=== PATIENT | male | born 1965 | race Caucasian/White ===

== ENCOUNTER 2022-07-16 07:24 | Emergency (ER) | payer OTHER, SELFPAY ==
[2022-07-16] VITALS (10 sets, daily range): BP systolic 167–198; BP diastolic 84–109; PULSE 72–92; RESP 14–20; TEMP 36.2; O2SAT 95–99; BMI 40.8
--- NOTE | 2022-07-16 07:36 | ED.GENADULT ---
HPI - General Adult General Chief complaint: Neuro Symptoms/Deficit Stated complaint: dropping on lT side of face Time Seen by Provider: 07/16/22 07:36 Source: patient Mode of arrival: Ambulatory Limitations: no limitations History of Present Illness HPI narrative: Patient is a 48-year-old male who arrives to emergency department for evaluation of left-sided facial droop. He states last evening he started having pain on the left side of his head. He is also been having fullness pain in his left ear for approximately 1 week or more. Has been on antibiotics without any improvement. States he woke up this morning and noticed that the left side of his face was drooping. He does have a left-sided headache. He is no extremity numbness or tingling. He does have problems closing his left eye. He did bite the left side of his lip as well. Has not tried anything for the symptoms prior to arrival. Does have a history of high blood pressure but does not take any current medications for this. It is take medicines for his thyroid Related Data Previous Rx's Medication Instructions Recorded hydrocodone 5 mg-acetaminophen 325 1 tab PO Q4-6H PRN pain #10 tabs 07/16/22 mg tablet prednisone 20 mg tablet 60 mg PO DAILY 6 days #18 tabs 07/16/22 Allergies Allergy/AdvReac Type Severity Reaction Status Date / Time Penicillins Allergy Hives Verified 07/16/22 07:37 Review of Systems Constitutional Constitutional: Reports system reviewed and no additional complaints, except as documented Eyes Eyes: Reports system reviewed and no additional complaints, except as documented Cardiovascular Cardiovascular: Reports system reviewed and no additional complaints, except as documented Respiratory Respiratory: Reports system reviewed and no additional complaints, except as documented Integumentary/Breasts Skin/Breast: Reports system reviewed and no additional complaints, except as documented Neurologic Neurologic: Reports system reviewed and no additional complaints, except as documented Hematologic/Lymphatic On Anticoagulants: No Patient History Medical History Hypertension Hypothyroid Social History Smoking Status: Never smoker Exam Initial Vital Signs Initial Vital Signs: Vital Signs Pulse Rate 92 H 07/16/22 07:32 Pulse Oximetry 97 07/16/22 07:32 Const General: cooperative, comfortable and No ill appearing HENMT Head: normal to inspection and normocephalic Ears: TM normal on the right, EAC's normal and TM abnormal bulging on the left and wth effusion (Left) Mouth: oral mucosae normal and moist mucous membranes Eyes Eyelids: eyelids normal Pupils: PERRL EOM: EOM intact bilaterally Resp Effort & Inspection: normal respiratory effort Auscultation: clear to auscultation bilaterally Cardio Rate: regular rate Rhythm: regular rhythm GI Inspection: normal to inspection Palpation: soft and No tender Skin General: no rashes or lesions noted Neuro General: patient alert, patient awake, patient oriented x3, gait normal and moves all extremities Cognition: normal cognition Speech: speech normal Gait: normal gait Motor: muscle tone normal throughout Other: Cranial nerves intact except for drooping of the left side of the face this does not involve the entire left side of the face Extrem General: normal to inspection and capillary refill normal Scores GCS [place] coma scale eye opening: Spontaneous [place] coma scale verbal response: Orientated [place] coma scale motor response: Obey commands [place] coma scale total score: 15 NIH Stroke Scale Level of Conciousness: Alert, keenly responsive Ask month/age: Answers both questions correctly. Open/close eyes, close hand: Performs both tasks correctly Best gaze horizontal: Normal Visual kelly: No visual loss Facial palsy: Partial paralysis, total or near total paralysis of lower face Left arm drift: No drift for full 10 sec Right arm drift: No drift for full 10 sec Left leg drift: No drift for full 5 sec Right leg drift: No drift for full 5 sec Limb ataxia: Absent Sensory on face/arms/legs: Mild to moderate sensory loss, can tell touch Best language: No aphasia, normal Dysarthria: Normal Extinction or inattention: No abnormality Total NIH Stroke scale score: 3 Course Orders Ordered: Discontinued Medications Hydrocodone Bitart/Acetaminophen (Hydrocodone/Acet 5/325 Tablet) 1 tab PO NOW ONE Stop: 07/16/22 10:50 Last Admin: 07/16/22 11:07 Dose: 1 tab Documented By: SUSAN Diazepam (Diazepam 5 Mg Tablet) 5 mg PO NOW ONE Stop: 07/16/22 09:46 Last Admin: 07/16/22 10:16 Dose: 5 mg Documented By: SUSAN Prednisone (Prednisone 20 Mg Tablet) 60 mg PO NOW ONE Stop: 07/16/22 10:50 Last Admin: 07/16/22 11:07 Dose: 60 mg Documented By: SUSAN Vital Signs Vital signs: Vital Signs - 8 hr 07/16/22 07:33 07/16/22 07:32 07/16/22 07:51 Temperature 97.2 F L Pulse Rate 91 H 92 H Respiratory Rate 18 Blood Pressure 198/109 H 173/98 H Pulse Oximetry 98 97 Oxygen Delivery Method Room Air 07/16/22 07:51 07/16/22 08:00 07/16/22 08:00 Temperature Pulse Rate 85 79 Respiratory Rate Blood Pressure 167/95 H Pulse Oximetry 97 96 Oxygen Delivery Method Medical Decision Making Lab Data 07/16/22 07:40 07/16/22 07:40 Labs: Lab Results 07/16/22 07/16/22 07/16/22 Range/Units 07:40 07:40 07:40 WBC 6.9 (4.5-11.0) X10^3/uL RBC 4.94 (4.5-5.9) X10^6/uL Hgb 14.8 (13.5-17.5) g/dL Hct 41.7 (41-53) % MCV 84.5 (80-100) fL MCH 30.0 (26-34) PG MCHC 35.5 (30-36) % RDW 12.8 (11.6-14.8) % Plt Count 208 (150-400) X10^3/uL Neut % (Auto) 65.8 (50-75) % Lymph % (Auto) 20.9 L (25-40) % [place] % (Auto) 10.9 (3-14) % Eos % (Auto) 1.8 L (2-4) % Baso % (Auto) 0.6 (0-2) % Neut # (Auto) 4600 (9425-2280) /uL Lymph # (Auto) 1400 (1890-0590) /uL [place] # (Auto) 800 (0-900) /uL Eos # (Auto) 100 (0-450) /uL Baso # (Auto) 0 (0-100) /uL Sodium 135 L (137-145) mmol/L Potassium 3.9 (3.4-5.1) mmol/L Chloride 99 (98-107) mmol/L Carbon Dioxide 29 (22-32) mmol/L BUN 17 (9-20) mg/dL Creatinine 0.83 (0.66-1.25) mg/dL Estimated GFR > 60 (>60) mL/min BUN/Creatinine Ratio 20.5 (6-22) Glucose 111 H (70-100) mg/dL Calcium 8.9 (8.4-10.2) mg/dL Total Bilirubin 0.7 (0.2-1.3) mg/dL AST 25 (17-59) IU/L ALT 34 (<50) IU/L Alkaline Phosphatase 69 (38-126) U/L Total Creatine Kinase 73 (55-170) U/L CK-MB (CK-2) TNP CK-MB (CK-2) Rel Index TNP Troponin I < 0.012 (0.01-0.034) ng/mL Total Protein 7.8 (6.3-8.2) g/dL Albumin 4.2 (3.5-5.0) g/dL Globulin 3.6 (1.7-4.1) g/dL Albumin/Globulin Ratio 1.2 (1.0-2.8) Lipase 77 (23-300) U/L TSH (0.47-4.68) uIU/mL 07/16/22 Range/Units 07:40 WBC (4.5-11.0) X10^3/uL RBC (4.5-5.9) X10^6/uL Hgb (13.5-17.5) g/dL Hct (41-53) % MCV (80-100) fL MCH (26-34) PG MCHC (30-36) % RDW (11.6-14.8) % Plt Count (150-400) X10^3/uL Neut % (Auto) (50-75) % Lymph % (Auto) (25-40) % [place] % (Auto) (3-14) % Eos % (Auto) (2-4) % Baso % (Auto) (0-2) % Neut # (Auto) (8900-1420) /uL Lymph # (Auto) (3744-4004) /uL [place] # (Auto) (0-900) /uL Eos # (Auto) (0-450) /uL Baso # (Auto) (0-100) /uL Sodium (137-145) mmol/L Potassium (3.4-5.1) mmol/L Chloride (98-107) mmol/L Carbon Dioxide (22-32) mmol/L BUN (9-20) mg/dL Creatinine (0.66-1.25) mg/dL Estimated GFR (>60) mL/min BUN/Creatinine Ratio (6-22) Glucose (70-100) mg/dL Calcium (8.4-10.2) mg/dL Total Bilirubin (0.2-1.3) mg/dL AST (17-59) IU/L ALT (<50) IU/L Alkaline Phosphatase (38-126) U/L Total Creatine Kinase (55-170) U/L CK-MB (CK-2) CK-MB (CK-2) Rel Index Troponin I (0.01-0.034) ng/mL Total Protein (6.3-8.2) g/dL Albumin (3.5-5.0) g/dL Globulin (1.7-4.1) g/dL Albumin/Globulin Ratio (1.0-2.8) Lipase (23-300) U/L TSH 2.34 (0.47-4.68) uIU/mL Urine Dip Bedside Urine Glucose Negative Bedside Urine Bilirubin - Negative Bedside Urine Ketone - Negative Urine Specific [place] 1.010 Bedside Urine Occult Blood - Negative Bedside Urine pH 6.5 Bedside Urine Protein - Negative Bedside Urine Urobilinogen - Negative Bedside Urine Nitrite - Negative Bedside Urine Leukocytes - Negative Esterase Point of care testing: Urine Dip Bedside Urine Glucose Negative Bedside Urine Bilirubin - Negative Bedside Urine Ketone - Negative Urine Specific [place] 1.010 Bedside Urine Occult Blood - Negative Bedside Urine pH 6.5 Bedside Urine Protein - Negative Bedside Urine Urobilinogen - Negative Bedside Urine Nitrite - Negative Bedside Urine Leukocytes - Negative Esterase Imaging Data CT scan - head: Radiologist's Impression: [address] [address] [address] Scan Report Signed Patient: Aleksandar Amin MR#: [id number] : 1965 Acct:[id number] Age/Sex: 56 / M Date of Service: 07/16/22 Loc: ED Accession Number: [id number] ?? Procedure: CT head/brain wo con Ordering Provider: Alan Golden D.O. PROCEDURE:? CT HEAD/BRAIN WO CON ? INDICATIONS:? Left-sided facial droop ? TECHNIQUE:? Noncontrast 4.5 mm thick angled axial sections acquired from the foramen magnum to the vertex, with coronal and sagittal reformats.? For radiation dose reduction, the following was used:? automated exposure control, adjustment of mA and/or kV according to patient size.? ? COMPARISON:? None. ? FINDINGS:? Image quality:? Excellent.? ? CSF spaces:? Basal cisterns are patent.? No extra-axial fluid collections.? Ventricles are normal in size and shape.? ? Brain:? No midline shift.? No intracranial masses or hemorrhage.? Sotelo-white matter interface is normal.? ? Skull and face:? Calvarium and visualized facial bones are intact, without suspicious lesions.? ? Sinuses:? Visualized sinuses demonstrate left maxillary mucosal thickening..? ? IMPRESSION:? ? 1. No acute intracranial process. ? ? Dictated by: Jesica Sood M.D. on 07/16/2022 at 7:55 ? ? Approved by: Jesica Sood M.D. on 07/16/2022 at 7:56? ECG Data Attestation: I personally reviewed and interpreted this ECG as follows: Interpretation: Sinus rhythm Ventricular rate is 77 Left axis deviation Normal QRS Normal QTC No ST T wave changes MDM Narrative Medical decision making narrative: Patient's clinical presentation today is consistent with Majano's palsy however did consider TIA/CVA. He is outside the window of any tPA or intervention. Head CT was unremarkable. Given his ear discomfort and the left-sided headache we discussed obtaining an MRI here in the emergency department. We attempted to obtain the MRI and even with Valium the patient was unable to finish the study secondary to claustrophobia. Plan will be is to start him on prednisone. We did discuss the importance of him following up with Ear Nose and Throat. He was given return precautions. He expressed understanding and agreement Discharge Plan Departure Patient Disposition: Home Clinical Impression: Majano's palsy Instructions: DI for [place] Palsy Activity Restrictions/Additional Instructions: I do recommend that you have follow-up with ENT. You can also talk with your primary provider about potentially following up with Neurology for some concern about what is called trigeminal neuralgia. Take the medications as directed. Return to the emergency department for new symptoms. Prescriptions: New prednisone 20 mg tablet 60 mg PO DAILY 6 Days Qty: 18 0RF Rx Instructions: first dose 07/17/22 hydrocodone-acetaminophen 5-325 mg tablet 1 tab PO Q4-6H PRN (Reason: pain) Qty: 10 0RF Referrals: Terell Hogan MD [Physician] - Justice Cardona MD [Primary Care Provider] - Stand Alone Forms: Patient Portal/API
--- NOTE | 2022-07-16 07:37 | DI.CT.S_ITS ---
PROCEDURE: CT HEAD/BRAIN WO CON INDICATIONS: Left-sided facial droop TECHNIQUE: Noncontrast 4.5 mm thick angled axial sections acquired from the foramen magnum to the vertex, with coronal and sagittal reformats. For radiation dose reduction, the following was used: automated exposure control, adjustment of mA and/or kV according to patient size. COMPARISON: None. FINDINGS: Image quality: Excellent. CSF spaces: Basal cisterns are patent. No extra-axial fluid collections. Ventricles are normal in size and shape. Brain: No midline shift. No intracranial masses or hemorrhage. Sotelo-white matter interface is normal. Skull and face: Calvarium and visualized facial bones are intact, without suspicious lesions. Sinuses: Visualized sinuses demonstrate left maxillary mucosal thickening.. IMPRESSION: 1. No acute intracranial process. Dictated by: Jesica Sood M.D. on 07/16/2022 at 7:55 Approved by: Jesica Sood M.D. on 07/16/2022 at 7:56
[2022-07-16 08:08] LABS: Creatine Kinase 73 U/L (55-170); Lipase 77 U/L (23-300)
[2022-07-16 08:09] LABS: Add Manual Diff / Slide Review NO; Alanine Aminotransferase 34 IU/L (<50); Albumin 4.2 g/dL (3.5-5.0); Albumin Globulin Ratio 1.2 (1.0-2.8); Alkaline Phosphatase 69 U/L (38-126); Aspartate Aminotransferase 25 IU/L (17-59); BUN Creatinine Ratio 20.5 (6-22); Basophils Absolute Auto 0 /uL (0-100); Basophils Percent Auto 0.6 % (0-2); Bilirubin Total 0.7 mg/dL (0.2-1.3); Blood Urea Nitrogen 17 mg/dL (9-20); Calcium 8.9 mg/dL (8.4-10.2); Carbon Dioxide 29 mmol/L (22-32); Chloride 99 mmol/L (98-107); Eosinophils Absolute Auto 100 /uL (0-450); Eosinophils Percent Auto 1.8 % (2-4); Estimated Glomerular Filt Rate > 60 mL/min (>60); Globulin 3.6 g/dL (1.7-4.1); Glucose 111 mg/dL (70-100); HEMOLYSIS 18 (0-50); Hematocrit 41.7 % (41-53); Hemoglobin 14.8 g/dL (13.5-17.5); Lymphocytes Absolute Auto 1400 /uL (1100-4500); Lymphocytes Percent Auto 20.9 % (25-40); Mean Corpuscular HGB Conc 35.5 % (30-36); Mean Corpuscular Volume 84.5 fL (80-100); Monocytes Absolute Auto 800 /uL (0-900); Monocytes Percent Auto 10.9 % (3-14); Neutrophils Absolute Auto 4600 /uL (1500-7000); Neutrophils Percent Auto 65.8 % (50-75); Platelet Count 208 X10^3/uL (150-400); Potassium 3.9 mmol/L (3.4-5.1); Red Blood Cell Count 4.94 X10^6/uL (4.5-5.9); Red Cell Distribution Width 12.8 % (11.6-14.8); Sodium 135 mmol/L (137-145); Total Protein 7.8 g/dL (6.3-8.2); White Blood Cell Count 6.9 X10^3/uL (4.5-11.0)
[2022-07-16 08:20] LABS: Troponin I < 0.012 ng/mL (0.01-0.034)
[2022-07-16 08:52] LABS: Thyroid Stimulating Hormone 2.34 uIU/mL (0.47-4.68)
[2022-07-16] MEDS: diazePAM 5 MG TABLET PO (10:16)
--- NOTE | 2022-07-16 10:43 | PC.NURSE ---
Pt return from MRI, unable to complete due to claustrophobia.
[2022-07-16] MEDS: predniSONE 20 MG TABLET 60 MG PO (11:07)
[2022-07-16] MEDS: HYDROCODONE/ACET 5/325 TABLET 1 TAB PO (11:07)
== END 2022-07-16 11:25 | disposition home or self-care (01) ==
PROVIDERS: Emergency Provider Emergency Medicine; PCP Family Medicine
DX: G51.0 Bell's palsy (principal); R07.9 Chest pain, unspecified; R29.703 NIHSS score 3
CPT/HCPCS: 36415; 70450; 80053; 81003; 82550; 83690; 84443; 84484; 85025; 93005; 93010; 99284

== ENCOUNTER → 2023-10-08 11:59 | Outpatient (CLI) | payer OTHER, SELFPAY ==
--- NOTE | 2023-10-08 12:01 | DI.CT.S_ITS ---
PROCEDURE: CT SINUS SCREEN WO CON INDICATIONS: Chronic pansinusitis TECHNIQUE: Noncontrast 3.0 mm axial images acquired from the frontal sinuses to the mid-sella, with coronal and sagittal reformats. For radiation dose reduction, the following was used: automated exposure control, adjustment of mA and/or kV according to patient size. COMPARISON: [facility], CT, CT HEAD/BRAIN WO CON, 07/16/2022, 7:45. Outside Film, MR, MR BRAIN WITH/WITHOUT CONTRAST, 08/02/2022, 13:14. FINDINGS: Image quality: Excellent. Maxillary Sinuses: There is complete opacification of the left maxillary sinus. The left maxillary sinus is small in size. There is demineralization of the medial wall of the left maxillary sinus. The right maxillary sinus demonstrates mild mucosal thickening inferiorly. There is mild demineralization of the superior medial wall of the right maxillary sinus. Ethmoid Air Cells: No bony remodeling or destruction. Minimal mucosal thickening can be seen anteriorly. Sphenoid Sinuses: No bony remodeling or destruction. Sinuses are clear. Frontal Sinuses: No bony remodeling or destruction. The frontal sinuses are poorly developed. Ostiomeatal Complexes: Ostiomeatal complexes are patent, yet they are highly constitutionally narrowed. There are small Claudy cells. The ostiomeatal complexes are demineralized. Miscellaneous: Visualized intra-orbital contents are normal. There is a prominent left-sided raheem bullosa. There is mild rightward nasal septal deviation seen, with a rightward directed bony nasal septal spur. IMPRESSION: There is complete opacification of the left maxillary sinus. The left maxillary sinus is small in size, which is consistent with chronic sinusitis. Mild mucosal thickening can be seen involving the inferior right maxillary sinus. The ostiomeatal complexes are highly constitutionally narrowed. Areas of bony demineralization are seen, which are consistent with chronic sinusitis. Dictated by: Kaden Perales M.D. on 10/08/2023 at 12:11 Approved by: Kaden Perales M.D. on 10/08/2023 at 12:14
== END ==
PROVIDERS: PCP Family Medicine; Referring Provider Otolaryngology; Visit Provider Otolaryngology
DX: J32.4 Chronic pansinusitis (principal)
CPT/HCPCS: 70486

== ENCOUNTER 2024-02-20 07:24 | Day surgery (SDC) | payer OTHER, SELFPAY ==
[2024-02-18 10:01] VITALS: BMI 38.7
[2024-02-20] MEDS: LACTATED RINGERS 1,000 ML 100 ML IV (07:38)
[2024-02-20] MEDS: OXYMETAZOLINE NASAL SPRAY 30 ML 2 SPRAYS NASAL (08:00)
[2024-02-20 08:07] VITALS: BP 158/89; PULSE 75; RESP 16; TEMP 36.6; O2SAT 99; BMI 38.7
--- NOTE | 2024-02-20 08:11 | SUR.OPER ---
Supine on padded OR bed, head on pillow, arms padded and tucked at sides, legs uncrossed, safety belt at thigh, tape over blanket over lower legs .
--- NOTE | 2024-02-20 08:25 | PM.PREOP ---
Pre-operative Note Interval Note History & Physical reviewed/Exam performed by Physician: Yes Changes to H&P: No
--- NOTE | 2024-02-20 08:26 | P.HP_ITS ---
History of Present Illness History of Present Illness Date Patient Seen: 02/20/24 Time Patient Seen: 08:26 Chief complaint: ENT Narrative: 58-year-old male last seen in clinic 11/05/2023 presents for scheduled left maxillary antrostomy with tissue removal, left anterior ethmoidectomy, and left raheem bullosa excision. Persistent left facial pressure but no recent illness, cough cold or fever. He would like to proceed with the scheduled surgery. [facility] Medical History Hyperglycemia Roque's cyst of knee BPH (benign prostatic hyperplasia) Dyslipidemia GERD (gastroesophageal reflux disease) Hypothyroid Hypertension Surgical History Hx of tympanostomy (07/2022) History of surgery (~2005) Social History household members: spouse Smoking Status: Former smoker alcohol intake: current Meds Home Medications and Allergies Home Medications Medication Instructions Recorded Confirmed Type diphenhydramine 25 1 tab PO BEDTIME 02/18/24 02/18/24 History mg-acetaminophen 500 mg tablet (Tylenol PM Extra Strength) felodipine 5 mg tablet,extended 5 mg PO DAILY 02/18/24 02/18/24 History release 24 hr hydrochlorothiazide 25 mg tablet 25 mg PO DAILY 02/18/24 02/20/24 History levothyroxine 137 mcg tablet 137 mcg PO DAILY 02/18/24 02/20/24 History felodipine 10 mg tablet,extended 10 mg PO DAILY 02/20/24 02/20/24 History release 24 hr Allergies Allergy/AdvReac Type Severity Reaction Status Date / Time Penicillins Allergy Hives Verified 02/20/24 08:02 Review of Systems Review of Systems Narrative: Negative except as listed in the HPI Exam Vital Signs (past 8 hours): - 02/20/24 08:07 Temperature 97.9 F Pulse Rate 75 Respiratory Rate 16 Blood Pressure 158/89 H Pulse Oximetry 99 Oxygen Delivery Method Room Air Oxygen Delivery Method Room Air Narrative Exam Narrative: Well-developed well-nourished, heart regular rate and rhythm without murmur, lungs clear to auscultation bilaterally Assessment & Plan Assessment & Plan narrative: Assessment: Chronic left maxillary sinusitis, left raheem bullosa, facial pain Plan: Following discussion of the material risks benefits complications and alternatives, the patient elected to proceed. Time-Based Coding :: [TOTAL MINUTES] spent with patient and on the chart (including review of chart, obtaining history, exam, reviewing outside data, placing orders, documenting exam and treatment plan, and counseling patient) on [DATE].
--- NOTE | 2024-02-20 08:29 | PM.OP.1 ---
Operative Date/Time/Diagnoses Date of procedure: 02/20/24 Time of procedure: 09:51 Pre-op diagnosis: Chronic left maxillary sinusitis, raheem bullosa left middle turbinate, facial pain Post-op diagnosis: same Procedure & Clinicians Procedure: 1. Left endoscopic maxillary antrostomy with tissue removal 2. Left raheem bullosa resection Same procedure as scheduled: Yes Indications: 58 Year old male with the above diagnoses incompletely managed with medical therapy presents for the above procedure. Following discussion of the material risks benefits complications and alternatives, the patient elected to proceed. Surgeon: Terell Hogan Click Yes if Unassisted: Yes Anesthesia Type: General and Local Operative Notes Findings: Retracted left uncinate against the orbit, orbit intact. Thick inspissated mucus filling sinus resected. Altered anatomy, no distinct ethmoid bulla. large raheem bullosa of the left middle turbinate resected laterally. Estimated Blood Loss (mL): 30 Procedure in detail: Following identification and confirmation of consent as well as preoperative Afrin nasal spray, the patient was brought to the operating room suite and placed in the supine position. General endotracheal anesthesia was administered. Temporary packing with cotton with Afrin and 4% lidocaine was performed. Following sterile prep and drape, the packing was removed. Under endoscopic guidance the posterior and anterior superior insertion of the middle turbinate was then infiltrated with additional local anesthetic via spinal needle, and cotton pledgets with 1 1000 epinephrine were placed in the middle meatus for several minutes and used intermittently throughout the case for hemostasis. The middle turbinate was slightly medialized and the lateral portion of the raheem bullosa was completely resected, greatly increasing the patency of the middle meatus. The uncinate process was identified with uncinectomy performed via the backbiting forceps and the microdebrider, although lateral and inferior and adjacent to the orbit. The natural os of the maxillary sinus was also eventually identified and enlarged posteriorly and inferiorly with forceps and the microdebrider, requiring the 70 degree endoscope at times. Tissue was removed from the maxillary sinus with the microdebrider and forceps, primarily extremely thick mucus, no overt tissue. Hemostasis was confirmed with some localized suction cautery on 10, primarily to the raw edges of the middle turbinate and antrostomy. No obvious ethmoid bulla due to the atypical anatomy. The procedure completed, sponge and needle counts were correct and the patient was extubated in the operating room and taken to recovery room in stable condition without known complication. Complications: none Post-operative Condition: stable Disposition: same day surgery Plan for aftercare: Nasal saline every hour while awake, begin irrigations t.i.d. tomorrow. Tylenol alternating with Advil for pain control, oxycodone for breakthrough pain. Afrin for any excessive bleeding. Elevate head of bed, no nose blowing, no straining for 2 weeks. Follow-up next week, call sooner with questions.
[2024-02-20] MEDS: LIDOCAINE 4% SOLN 50 ML TOP (08:55)
[2024-02-20] MEDS: LIDOCAINE 1% W/EPI 20 ML INJ (08:58)
[2024-02-20] MEDS: [UNRECOGNIZED DRUG - OTHER] IRR (09:03)
[2024-02-20] MEDS: ACETAMINOPHEN IV 1,000 MG/100 ML VIAL 400 MG IV (09:22)
[2024-02-20 10:06] VITALS: BP 164/96; PULSE 76; RESP 14; TEMP 36.9; O2SAT 96
[2024-02-20 10:14] VITALS: BP 149/95; PULSE 67; RESP 12; O2SAT 97
[2024-02-20 10:21] VITALS: BP 143/90; PULSE 66; RESP 12; O2SAT 97
[2024-02-20 10:26] VITALS: BP 148/92; PULSE 66; RESP 16; O2SAT 98
== END 2024-02-20 10:54 | disposition home or self-care (01) ==
PROVIDERS: PCP Physician Assistant; Referring Provider Otolaryngology; Visit Provider Otolaryngology
PROC: (CPT 31231; principal; 2024-02-20 08:45)
DX: J32.0 Chronic maxillary sinusitis (principal)
CPT/HCPCS: 31267; 31240; J0136; J0171; J0330; J1100; J2250; J2405; J2704; J3010